=== PATIENT | female | born 1985 | race Caucasian/White ===

== ENCOUNTER 2020-08-15 16:03 | Emergency (ER) | payer BC ==
[~2020-08-15] VITALS: Ht 165.1 cm; Wt 90.7 kg
[2020-08-15 16:16] VITALS: BP_SYST 141
[2020-08-15 16:58] VITALS: BP_SYST 130
== END 2020-08-15 16:58 | disposition home or self-care (01) ==
LOC: SED 16:03
DX: R00.2 Palpitations (principal); F41.9 Anxiety disorder, unspecified
CPT/HCPCS: 93005; 99283